=== PATIENT | male | born 1940 | race Caucasian/White ===

== ENCOUNTER 2017-07-15 16:21 | Outpatient (CLI) | payer MEDICARE, BC ==
--- NOTE | 2017-07-16 09:52 | MRI ---
CERVICAL SPINE MRI NONCONTRAST: Date: 07/15/17 Reference made to 10/29/11. INDICATION: Cervical radiculopathy. FINDINGS: Multilevel cervical spondylosis is present. There is near complete obliteration of the C6-7 disc spac e. This results in a prominent osteophyte ridge effacing the ventral aspect of the vertebral canal co ntents. Degenerative hypertrophy at the atlantoaxial articulation is present, moderate in degree. The re is parenchymal volume loss of the imaged brain parenchyma at the posterior cranial fossa. No acute marrow edema evident. No significant subluxation. There is effacement of the ventral thecal sac at C1-2 level due to the above described degenerative h ypertrophy. C2-3: There is no high grade central canal or neural foraminal stenosis. A disc osteophyte complex does mil dly efface the ventral thecal sac. C3-4: Mild central canal stenosis with mild ventral cord flattening due to broad based osteophyte. There is moderate bilateral neural foraminal stenosis. C4-5: Disc osteophyte complex with moderate central canal stenosis and cord flattening. There is moderate t o severe bilateral neural foraminal stenosis due to degenerative hypertrophy of the uncinate process bilaterally, facet joints bilaterally, and prominent osteophyte ridge. C5-6: Right asymmetric disc osteophyte complex results in mild central canal stenosis and mild to moderate narrowing of the right subarticular zone with ventral cord flattening more notable to the right. Ther e is mild bilateral neural foraminal stenosis. The previously noted focal protrusion which was center ed at the right subarticular zone is slightly less confluent. C6-7: Broad based osteophyte ridge results in moderate central canal stenosis and moderate cord compromise with moderate to severe left and moderate right neural foraminal stenosis. C7-T1: There is mild narrowing of the central canal with mild ventral cord effacement due to broad based dis c osteophyte. Mild to moderate right and mild left neural foraminal narrowing. Evaluation of the cervical spine cord reveals no obvious focal intramedullary signal abnormality. IMPRESSION: Multilevel degenerative change remains throughout the cervical spine, as delineated abov e. POS: [facility]
== END 2017-07-15 16:22 | disposition home or self-care (01) ==
LOC: MRI 16:21
PROVIDERS: ATTEND Neurological Surgery
DX: M47.22 Other spondylosis with radiculopathy, cervical region (principal)
CPT/HCPCS: 72141

== ENCOUNTER 2017-08-24 07:43 | Outpatient (CLI) | payer MEDICARE, BC | END 2017-08-24 07:44 | disposition home or self-care (01) | LOC: BICMRI 07:43 | PROVIDERS: ATTEND Specialist | DX: M51.16 Intervertebral disc disorders with radiculopathy, lumbar region (principal); M51.17 Intervertebral disc disorders with radiculopathy, lumbosacral region; M47.26 Other spondylosis with radiculopathy, lumbar region; M47.27 Other spondylosis with radiculopathy, lumbosacral region; M48.061 Spinal stenosis, lumbar region without neurogenic claudication; M99.83 Other biomechanical lesions of lumbar region | CPT/HCPCS: 72148 ==

== ENCOUNTER 2021-05-09 11:11 | Inpatient (IN) | payer MEDICARE, BC ==
[~2021-05-09 11:11] MED LIST: Iopamidol-370 76% 500 ML 1 ML ONE; Magnevist 469MG/ML 20 ML VIAL ONE
[2021-05-09 12:01] LABS: Prothrombin Time 13.6 sec (12.0-14.7)
[2021-05-09 12:02] LABS: PTT 23.1 sec (22.9-36.1)
[2021-05-09 12:04] LABS: ALT (SGPT) 8 U/L (8-55); AST (SGOT) 19 U/L (5-34); Albumin 4.2 g/dL (3.4-4.8); Alkaline Phosphatase 78 U/L (40-110); Anion Gap 14 mmol/L (10-20); BUN (Urea Nitrogen) 24 mg/dL (8.4-25.7); Bilirubin, Total 0.8 mg/dL (0.2-1.2); CK (CPK) 169 U/L (30-200); Calc. Creatinine Clearance 0 mL/min (70-130); Calcium 9.7 mg/dL (7.8-10.44); Carbon Dioxide 24 mmol/L (23-31); Chloride 107 mmol/L (98-107); Globulin 3.5 g/dL (2.4-3.5); Glucose 95 mg/dL (83-110); Potassium 3.9 mmol/L (3.5-5.1); Protein, Total 7.7 g/dL (5.8-8.1); Sodium 141 mmol/L (136-145)
[2021-05-09] MEDS ORDERED: Dexamethasone 10 MG/ML VIAL ONE (12:36)
[2021-05-09 12:40] LABS: #Eosinphils 0.1 thou/uL (0.0-0.7); #Lymphocytes 1.5 thou/uL (1.20-3.40); #Monocytes 0.7 thou/uL (0.11-0.59); %Basophils 0.3 % (0.0-1.0); %Eosinophils 0.7 % (0.0-10.0); %Lymphocytes 17.5 % (21.0-51.0); %Monocytes 8.8 % (0.0-10.0); %Neutrophils 72.7 % (42.0-75.0); Hemoglobin 14.6 g/dL (14.0-18.0); Mean Corpuscular HGB CONC 33.1 g/dL (32.0-36.0); Mean Corpuscular Volume 93.7 fL (78.0-98.0); Mean Platelet Volume 8.9 fL (7.4-10.4); Platelet Count 112 thou/uL (130-400); Platelet Morphology Comment Appears Decreased; RBC Distribution Width 11.6 % (11.5-14.5); RBC Morphology Normal; White Blood Cell (WBC) Count 8.3 thou/uL (4.8-10.8)
[2021-05-09] MEDS ORDERED: FOLIC ACID IV SCH (15:00)
[2021-05-09] MEDS ORDERED: MULTIVITAMINS IV SCH (15:00)
[2021-05-09] MEDS ORDERED: [UNRECOGNIZED DRUG - OTHER] IV SCH (15:00)
[2021-05-09] MEDS ORDERED: Thiamine HCl 200 MG/2 ML VIAL SLOW IVP SCH (15:00)
[2021-05-09] MEDS ORDERED: Magnesium 2 GM/50 ML 2 GM in Premix Bag 1 BAG IVPB SCH (15:00)
[2021-05-09] MEDS ORDERED: TRACE ELEMENT IV SCH (15:00)
[2021-05-09] MEDS ORDERED: Multivitamins, Adult 10 ML, Folic Acid 1 MG in Sodium Chloride 0.9% 1,000 ML IV SCH (15:00)
[2021-05-09 15:33] LABS: SARS-CoV-2 NAA Rapid Test Not Detected (NotDetected)
[2021-05-09] MEDS ORDERED: Magnesium 2 GM/50 ML BAG (IN WATER) ONE (15:35)
[2021-05-09] MEDS ORDERED: hydrALAZINE 20 MG/ML VIAL SLOW IVP PRN (18:14)
[2021-05-09] MEDS: Sodium Chloride 0.9% 1,000 ML IV SCH (18:15)
[2021-05-09] MEDS ORDERED: Dexamethasone 4 mg/ml Vial ONE (18:16)
[2021-05-09] MEDS: Dexamethasone 4 mg/ml Vial SLOW IVP SCH (18:22)
[2021-05-09 20:58] LABS: Bilirubin Negative (Negative); Blood, Urine Negative (Negative); Glucose, Urine (Dipstick) Negative (Negative); Ketone, Urine 15 mg/dL (Negative); Leukocyte Negative (Negative); Nitrite Negative (Negative); Protein, Urine (Dipstick) Negative (Neg-Trace); Urobilinogen 0.2 mg/dL (Less than 2); pH, Urine 6.5 (5.0-9.0)
[2021-05-09 20:59] LABS: Clarity Clear (Clear)
[2021-05-09 21:03] LABS: RBC/HPF 0-3 HPF (0-3); Squamous Epithelial 0-3 HPF (0-3); WBC/HPF 0-3 HPF (0-3)
[2021-05-09] MEDS ORDERED: Acetaminophen 650 MG Suppository ONE (22:58)
[2021-05-09] MEDS: Acetaminophen 650 MG Suppository PR PRN (23:10)
[2021-05-10] MEDS ORDERED: Sterile Water 10 ML VIAL FS PRN (01:15)
[2021-05-10] MEDS ORDERED: OLANZapine 10 MG VIAL IM SCH (01:15)
[2021-05-10] MEDS ORDERED: Dexamethasone 4 mg/ml Vial ONE (01:37)
[2021-05-10] MEDS: Dexamethasone 4 mg/ml Vial SLOW IVP SCH ×4 (01:51→18:18)
[2021-05-10 04:14] LABS: #Basophils 0.1 thou/uL (0.0-0.2); #Lymphocytes 0.8 thou/uL (1.20-3.40); #Monocytes 0.2 thou/uL (0.11-0.59); #Neutrophils 6.9 thou/uL (1.40-6.50); %Basophils 1.3 % (0.0-1.0); %Eosinophils 0.3 % (0.0-10.0); %Lymphocytes 9.9 % (21.0-51.0); %Monocytes 2.4 % (0.0-10.0); %Neutrophils 86.1 % (42.0-75.0); Hemoglobin 12.8 g/dL (14.0-18.0); Mean Corpuscular HGB CONC 33.1 g/dL (32.0-36.0); Mean Corpuscular Hemoglobin 30.9 pg (27.0-31.0); Mean Corpuscular Volume 93.6 fL (78.0-98.0); Mean Platelet Volume 9.8 fL (7.4-10.4); Platelet Count 153 thou/uL (130-400); RBC Distribution Width 11.6 % (11.5-14.5); Red Blood Cell (RBC) Count 4.14 mill/uL (4.70-6.10)
[2021-05-10 04:35] LABS: Anion Gap 13 mmol/L (10-20); BUN (Urea Nitrogen) 27 mg/dL (8.4-25.7); Calc. Creatinine Clearance 0 mL/min (70-130); Calcium 8.8 mg/dL (7.8-10.44); Carbon Dioxide 20 mmol/L (23-31); Chloride 111 mmol/L (98-107); Glucose 132 mg/dL (83-110); Potassium 4.2 mmol/L (3.5-5.1); Sodium 140 mmol/L (136-145)
[2021-05-10] MEDS: Sodium Chloride 0.9% 1,000 ML IV SCH (06:11)
[2021-05-10] MEDS: Pantoprazole 40 MG VIAL IVP SCH (10:20)
[2021-05-10] MEDS ORDERED: FLU VACC QS2021-22(65YR UP)/PF 240 MCG/0.7 ML SYRINGE IM ONE (14:00)
[2021-05-10] MEDS: Morphine 4 MG/ML VIAL SLOW IVP PRN (18:18)
[2021-05-10] MEDS: Dextrose 5 % And 0.9 % NaCl 1,000 ML IV SCH (18:19)
[2021-05-10] MEDS ORDERED: Lorazepam 2 MG/ML VIAL SLOW IVP SCH (21:45)
[2021-05-11] MEDS: Dexamethasone 4 mg/ml Vial SLOW IVP SCH ×5 (00:12→23:56)
[2021-05-11 04:12] LABS: #Lymphocytes 0.8 thou/uL (1.20-3.40); #Monocytes 0.8 thou/uL (0.11-0.59); #Neutrophils 15.5 thou/uL (1.40-6.50); %Eosinophils 0.3 % (0.0-10.0); %Lymphocytes 4.6 % (21.0-51.0); %Monocytes 4.5 % (0.0-10.0); %Neutrophils 90.6 % (42.0-75.0); Hemoglobin 12.3 g/dL (14.0-18.0); Mean Corpuscular HGB CONC 32.5 g/dL (32.0-36.0); Mean Corpuscular Hemoglobin 30.7 pg (27.0-31.0); Mean Corpuscular Volume 94.4 fL (78.0-98.0); Mean Platelet Volume 7.9 fL (7.4-10.4); Platelet Count 158 thou/uL (130-400); RBC Distribution Width 11.7 % (11.5-14.5); Red Blood Cell (RBC) Count 4.02 mill/uL (4.70-6.10); White Blood Cell (WBC) Count 17.1 thou/uL (4.8-10.8)
[2021-05-11 04:34] LABS: Anion Gap 13 mmol/L (10-20); BUN (Urea Nitrogen) 37 mg/dL (8.4-25.7); Calc. Creatinine Clearance 46 mL/min (70-130); Calcium 8.5 mg/dL (7.8-10.44); Carbon Dioxide 22 mmol/L (23-31); Chloride 111 mmol/L (98-107); Glucose 185 mg/dL (83-110); Potassium 4.5 mmol/L (3.5-5.1); Sodium 141 mmol/L (136-145)
[2021-05-11] MEDS: Dextrose 5 % And 0.9 % NaCl 1,000 ML IV SCH ×2 (06:41→18:49)
[2021-05-11] MEDS: Pantoprazole 40 MG VIAL IVP SCH (08:51)
[2021-05-11] MEDS: Morphine 4 MG/ML VIAL SLOW IVP PRN (11:48)
[2021-05-12 04:22] LABS: #Lymphocytes 0.6 thou/uL (1.20-3.40); #Monocytes 0.8 thou/uL (0.11-0.59); %Basophils 0.1 % (0.0-1.0); %Eosinophils 0.3 % (0.0-10.0); %Lymphocytes 3.8 % (21.0-51.0); %Neutrophils 90.8 % (42.0-75.0); Hemoglobin 12.6 g/dL (14.0-18.0); Mean Corpuscular HGB CONC 33.3 g/dL (32.0-36.0); Mean Corpuscular Hemoglobin 31.1 pg (27.0-31.0); Mean Corpuscular Volume 93.4 fL (78.0-98.0); Mean Platelet Volume 9.4 fL (7.4-10.4); Platelet Count 157 thou/uL (130-400); RBC Distribution Width 11.7 % (11.5-14.5); Red Blood Cell (RBC) Count 4.06 mill/uL (4.70-6.10); White Blood Cell (WBC) Count 15.4 thou/uL (4.8-10.8)
[2021-05-12 04:35] LABS: Anion Gap 14 mmol/L (10-20); BUN (Urea Nitrogen) 35 mg/dL (8.4-25.7); Calc. Creatinine Clearance 52 mL/min (70-130); Calcium 8.7 mg/dL (7.8-10.44); Carbon Dioxide 20 mmol/L (23-31); Chloride 114 mmol/L (98-107); Glucose 138 mg/dL (83-110); Potassium 4.5 mmol/L (3.5-5.1); Sodium 143 mmol/L (136-145)
[2021-05-12] MEDS: Dexamethasone 4 mg/ml Vial SLOW IVP SCH ×3 (06:18→17:53)
[2021-05-12] MEDS: Pantoprazole 40 MG VIAL IVP SCH (09:45)
[2021-05-12] MEDS: Dextrose 5 % And 0.9 % NaCl 1,000 ML IV SCH ×2 (09:57→21:46)
[2021-05-13] MEDS: Dexamethasone 4 mg/ml Vial SLOW IVP SCH ×5 (00:06→23:05)
[2021-05-13] MEDS: Pantoprazole 40 MG VIAL IVP SCH (09:10)
[2021-05-13] MEDS: Dextrose 5 % And 0.9 % NaCl 1,000 ML IV SCH (13:46)
[2021-05-13] MEDS: Acetaminophen 650 MG Suppository PR PRN (21:11)
[2021-05-13] MEDS ORDERED: Piperacillin/Tazobactam 3.375 GM in Sodium Chloride 0.9% 100 ML IVPB SCH (22:30)
[2021-05-13] MEDS ORDERED: Acetaminophen 325 MG Suppository PR SCH (23:00)
[2021-05-14] MEDS: Dextrose 5 % And 0.9 % NaCl 1,000 ML IV SCH ×2 (02:39→14:33)
[2021-05-14] MEDS: Piperacillin/Tazobactam 3.375 GM in Sodium Chloride 0.9% 100 ML IVPB SCH ×3 (02:40→18:29)
[2021-05-14 03:23] LABS: Bilirubin Negative (Negative); Blood, Urine 3+ (Negative); Clarity Extra Turbid (Clear); Glucose, Urine (Dipstick) Normal (Negative); Ketone, Urine Negative (Negative); Leukocyte 500 Leu/uL (Negative); Nitrite Negative (Negative); Protein, Urine (Dipstick) 200 mg/dL (Neg-Trace); RBC/HPF Greater than 50 HPF (0-3); Specific Gravity, Urine 1.022 (1.002-1.036); Squamous Epithelial 0-3 HPF (0-3); Urobilinogen Normal mg/dL (Less than 2); WBC/HPF Greater than 50 HPF (0-3)
[2021-05-14 03:36] LABS: Bacteria/HPF 3+ HPF (None Seen); Calcium Oxalate Crystals 3+ HPF (None Seen); Triple Phosphate Crystal 1+ HPF (None Seen); Urine Culture Reflex Yes Yes
[2021-05-14] MEDS: Dexamethasone 4 mg/ml Vial SLOW IVP SCH ×4 (05:05→23:54)
[2021-05-14] MEDS: Pantoprazole 40 MG VIAL IVP SCH (09:04)
[2021-05-14] MEDS ORDERED: Fentanyl 100 MCG/2 ML VIAL ONE (09:27)
[2021-05-14] MEDS ORDERED: Sodium Bicarbonate 2.5 MEQ/5 ML VIAL ONE (09:27)
[2021-05-14] MEDS ORDERED: Midazolam HCl 2 mg/2 ml Vial ONE (09:27)
[2021-05-14] MEDS: VANCOMYCIN 1.25 GM/250 ML BAG 1.25 GM in Premix Bag 1 BAG IVPB SCH (14:31)
[2021-05-14] MEDS: Acetaminophen 650 MG Suppository PR PRN (14:31)
[2021-05-14] MEDS ORDERED: VANCOMYCIN 1.25 GM/250 ML BAG 1.25 GM in Premix Bag 1 BAG IVPB SCH (21:00)
[2021-05-15] MEDS: Piperacillin/Tazobactam 3.375 GM in Sodium Chloride 0.9% 100 ML IVPB SCH ×3 (01:36→18:00)
[2021-05-15] MEDS: Morphine 4 MG/ML VIAL SLOW IVP PRN (01:51)
[2021-05-15] MEDS: Dextrose 5 % And 0.9 % NaCl 1,000 ML IV SCH ×2 (05:46→15:58)
[2021-05-15] MEDS: Dexamethasone 4 mg/ml Vial SLOW IVP SCH ×3 (05:47→18:01)
[2021-05-15] MEDS: Pantoprazole 40 MG VIAL IVP SCH (10:11)
[2021-05-15] MEDS: Acetaminophen 650 MG Suppository PR PRN ×2 (12:43→21:59)
[2021-05-15 14:50] LABS: Albumin 2.7 g/dL (3.4-4.8); Calcium 8.6 mg/dL (7.8-10.44); Chloride 117 mmol/L (98-107); Glucose 123 mg/dL (83-110); Potassium 4.8 mmol/L (3.5-5.1); Sodium 142 mmol/L (136-145)
[2021-05-15 14:51] LABS: Anion Gap 14 mmol/L (10-20); Bilirubin, Total 0.6 mg/dL (0.2-1.2); Carbon Dioxide 16 mmol/L (23-31); Globulin 3.7 g/dL (2.4-3.5); Protein, Total 6.4 g/dL (5.8-8.1)
[2021-05-15 14:54] LABS: Hemoglobin 13.1 g/dL (14.0-18.0); Lymphocytes 6 % (21-51); MDiff Complete? YES; Mean Corpuscular HGB CONC 33.4 g/dL (32.0-36.0); Mean Corpuscular Hemoglobin 31.4 pg (27.0-31.0); Mean Corpuscular Volume 94.3 fL (78.0-98.0); Monocytes 3 % (0-10); Neutrophil 91 % (42-75); Platelet Count 109 thou/uL (130-400); Platelet Morphology Comment Appears Decreased; Polychromasia SLIGHT = 2-3 cells (100X) (0-2/hpf); Red Blood Cell (RBC) Count 4.16 mill/uL (4.70-6.10)
[2021-05-15 15:16] LABS: Alkaline Phosphatase 54 U/L (40-110); Calc. Creatinine Clearance 60 mL/min (70-130)
[2021-05-15 15:17] LABS: BUN (Urea Nitrogen) 43 mg/dL (8.4-25.7)
[2021-05-15 15:19] LABS: ALT (SGPT) 11 U/L (8-55); AST (SGOT) 24 U/L (5-34)
[2021-05-15] MEDS: VANCOMYCIN 1.25 GM/250 ML BAG 1.25 GM in Premix Bag 1 BAG IVPB SCH (15:50)
[2021-05-16] MEDS: Dexamethasone 4 mg/ml Vial SLOW IVP SCH ×4 (00:11→17:52)
[2021-05-16] MEDS: Piperacillin/Tazobactam 3.375 GM in Sodium Chloride 0.9% 100 ML IVPB SCH ×3 (01:34→17:52)
[2021-05-16] MEDS: Dextrose 5 % And 0.9 % NaCl 1,000 ML IV SCH ×2 (01:35→18:30)
[2021-05-16 09:13] LABS: SARS-CoV-2 PCR by NAA Not Detected (NotDetected)
[2021-05-16] MEDS: Pantoprazole 40 MG VIAL IVP SCH (09:51)
[2021-05-16] MEDS: VANCOMYCIN 1.25 GM/250 ML BAG 1.25 GM in Premix Bag 1 BAG IVPB SCH (14:18)
[2021-05-16 14:30] LABS: Vancomycin, Trough 5.6 ug/mL
[2021-05-16] MEDS ORDERED: Vancomycin HCl 500 MG in Sodium Chloride 0.9% 100 ML IVPB SCH (15:15)
[2021-05-16] MEDS: Acetaminophen 650 MG Suppository PR PRN (17:52)
[2021-05-17] MEDS: Dexamethasone 4 mg/ml Vial SLOW IVP SCH ×5 (00:14→23:44)
[2021-05-17] MEDS: Piperacillin/Tazobactam 3.375 GM in Sodium Chloride 0.9% 100 ML IVPB SCH ×3 (02:28→17:44)
[2021-05-17] MEDS: Morphine 4 MG/ML VIAL SLOW IVP PRN (05:17)
[2021-05-17] MEDS: Dextrose 5 % And 0.9 % NaCl 1,000 ML IV SCH ×2 (11:10→21:03)
[2021-05-17] MEDS: Pantoprazole 40 MG VIAL IVP SCH (11:11)
[2021-05-17] MEDS: Acetaminophen 650 MG Suppository PR PRN (11:12)
[2021-05-17] MEDS: VANCOMYCIN 1.75 GM/350 ML BAG 1.75 GM in Premix Bag 1 BAG IVPB SCH (16:29)
[2021-05-18] MEDS: Piperacillin/Tazobactam 3.375 GM in Sodium Chloride 0.9% 100 ML IVPB SCH ×3 (02:58→17:19)
[2021-05-18] MEDS: Dexamethasone 4 mg/ml Vial SLOW IVP SCH ×4 (05:56→23:53)
[2021-05-18] MEDS: Pantoprazole 40 MG VIAL IVP SCH (10:22)
[2021-05-18] MEDS: Dextrose 5 % And 0.9 % NaCl 1,000 ML IV SCH (10:22)
[2021-05-18] MEDS ORDERED: Ondansetron ODT 4 MG TAB SL PRN (11:02)
[2021-05-18] MEDS ORDERED: Artificial Tear Sol 15 ML BOT EA EYE PRN (11:02)
[2021-05-18] MEDS ORDERED: Senokot S 8.6-50 MG TAB PER TUBE PRN (11:02)
[2021-05-18] MEDS ORDERED: Hydrocerin (Eucerin) Cream 120 gm Jar TOP PRN (11:02)
[2021-05-18] MEDS ORDERED: Ondansetron PF 4 MG/2 ML Vial IVP PRN (11:02)
[2021-05-18] MEDS ORDERED: GUAIFENESIN SF SOLN 200 MG/10 ML UDCUP PER TUBE PRN (11:02)
[2021-05-18] MEDS ORDERED: Calcium Carbonate 500 MG ChewTAB PER TUBE PRN (11:02)
[2021-05-18] MEDS ORDERED: Loratadine 10 MG TAB PER TUBE PRN (11:02)
[2021-05-18] MEDS ORDERED: Loperamide HCl 2 MG CAP PER TUBE PRN (11:02)
[2021-05-18] MEDS: Phenazopyridine HCl 100 MG TAB PER TUBE SCH ×2 (13:01→17:22)
[2021-05-18] MEDS: VANCOMYCIN 1.75 GM/350 ML BAG 1.75 GM in Premix Bag 1 BAG IVPB SCH (15:52)
[2021-05-18] MEDS: HYDROcodone/Acetaminophen 5/325 mg Tablet PER TUBE PRN (17:19)
[2021-05-18] MEDS ORDERED: Acetaminophen 650 MG/20.3 ML UDCUP PER TUBE PRN (17:30)
[2021-05-19] MEDS: Piperacillin/Tazobactam 3.375 GM in Sodium Chloride 0.9% 100 ML IVPB SCH ×3 (01:47→18:05)
[2021-05-19] MEDS: Dextrose 5 % And 0.9 % NaCl 1,000 ML IV SCH ×2 (01:47→20:28)
[2021-05-19] MEDS: Dexamethasone 4 mg/ml Vial SLOW IVP SCH ×4 (05:40→22:52)
[2021-05-19 09:17] LABS: Hemoglobin 13.2 g/dL (14.0-18.0); Mean Corpuscular HGB CONC 32.1 g/dL (32.0-36.0); Mean Corpuscular Hemoglobin 31.3 pg (27.0-31.0); Mean Corpuscular Volume 97.4 fL (78.0-98.0); Mean Platelet Volume 9.9 fL (7.4-10.4); Platelet Count 122 thou/uL (130-400); RBC Distribution Width 12.4 % (11.5-14.5); Red Blood Cell (RBC) Count 4.23 mill/uL (4.70-6.10); White Blood Cell (WBC) Count 20.7 thou/uL (4.8-10.8)
[2021-05-19] MEDS: Phenazopyridine HCl 100 MG TAB PER TUBE SCH ×3 (10:16→18:05)
[2021-05-19] MEDS: Pantoprazole 40 MG VIAL IVP SCH (10:17)
[2021-05-19 10:23] LABS: Band 3 % (5-11); Eosinophils 1 % (0-10); Lymphocytes 6 % (21-51); MDiff Complete? YES; Monocytes 3 % (0-10); Neutrophil 87 % (42-75); Platelet Morphology Comment Appears Decreased; Polychromasia SLIGHT = 2-3 cells (100X) (0-2/hpf)
[2021-05-19 10:33] LABS: ALT (SGPT) 10 U/L (8-55); AST (SGOT) 11 U/L (5-34); Albumin 2.5 g/dL (3.4-4.8); Alkaline Phosphatase 65 U/L (40-110); Anion Gap 9 mmol/L (10-20); BUN (Urea Nitrogen) 40 mg/dL (8.4-25.7); Bilirubin, Total 0.5 mg/dL (0.2-1.2); Calc. Creatinine Clearance 75 mL/min (70-130); Carbon Dioxide 24 mmol/L (23-31); Chloride 116 mmol/L (98-107); Globulin 2.5 g/dL (2.4-3.5); Glucose 204 mg/dL (83-110); Phosphorus 2.5 mg/dL (2.3-4.7); Potassium 3.9 mmol/L (3.5-5.1); Sodium 145 mmol/L (136-145)
[2021-05-19] MEDS: HYDROcodone/Acetaminophen 5/325 mg Tablet PER TUBE PRN (12:40)
[2021-05-19 14:52] LABS: Vancomycin, Trough 11.7 ug/mL
[2021-05-19] MEDS: VANCOMYCIN 2 GRAM/400 ML BAG 2 GM in Premix Bag 1 BAG IVPB SCH (16:58)
[2021-05-19] MEDS: VANCOMYCIN 1.75 GM/350 ML BAG 1.75 GM in Premix Bag 1 BAG IVPB SCH (17:04)
[2021-05-19] MEDS: Morphine 4 MG/ML VIAL SLOW IVP PRN (22:51)
[2021-05-20] MEDS: Piperacillin/Tazobactam 3.375 GM in Sodium Chloride 0.9% 100 ML IVPB SCH ×3 (02:51→17:45)
[2021-05-20] MEDS: Dexamethasone 4 mg/ml Vial SLOW IVP SCH ×4 (05:07→23:19)
[2021-05-20] MEDS: Phenazopyridine HCl 100 MG TAB PER TUBE SCH ×3 (08:47→17:46)
[2021-05-20] MEDS: Dextrose 5 % And 0.9 % NaCl 1,000 ML IV SCH ×2 (08:47→23:19)
[2021-05-20] MEDS: Pantoprazole 40 MG VIAL IVP SCH (08:47)
[2021-05-20] MEDS: VANCOMYCIN 2 GRAM/400 ML BAG 2 GM in Premix Bag 1 BAG IVPB SCH (17:46)
[2021-05-21] MEDS: Piperacillin/Tazobactam 3.375 GM in Sodium Chloride 0.9% 100 ML IVPB SCH ×3 (03:16→18:46)
[2021-05-21] MEDS: Dexamethasone 4 mg/ml Vial SLOW IVP SCH ×3 (06:11→18:46)
[2021-05-21 08:50] LABS: Hemoglobin 15.4 g/dL (14.0-18.0); Mean Corpuscular HGB CONC 32.9 g/dL (32.0-36.0); Mean Corpuscular Hemoglobin 30.7 pg (27.0-31.0); Mean Corpuscular Volume 93.3 fL (78.0-98.0); Mean Platelet Volume 8.3 fL (7.4-10.4); Platelet Count 135 thou/uL (130-400); RBC Distribution Width 12.1 % (11.5-14.5); Red Blood Cell (RBC) Count 5.02 mill/uL (4.70-6.10); White Blood Cell (WBC) Count 32.8 thou/uL (4.8-10.8)
[2021-05-21 09:05] LABS: ALT (SGPT) 18 U/L (8-55); AST (SGOT) 18 U/L (5-34); Alkaline Phosphatase 75 U/L (40-110); Anion Gap 12 mmol/L (10-20); BUN (Urea Nitrogen) 36 mg/dL (8.4-25.7); Bilirubin, Total 1.1 mg/dL (0.2-1.2); Calc. Creatinine Clearance 69 mL/min (70-130); Calcium 8.5 mg/dL (7.8-10.44); Carbon Dioxide 24 mmol/L (23-31); Chloride 107 mmol/L (98-107); Glucose 171 mg/dL (83-110); Potassium 3.9 mmol/L (3.5-5.1); Sodium 139 mmol/L (136-145)
[2021-05-21 09:20] LABS: Band 11 % (5-11); Hypersemented Neutrophil SLIGHT; Lymphocytes 4 % (21-51); MDiff Complete? YES; Metamyelocyte 2 % (0-0); Monocytes 3 % (0-10); Neutrophil 80 % (42-75); Platelet Morphology Comment Appears Adequate; Polychromasia SLIGHT = 2-3 cells (100X) (0-2/hpf); Vacuoles SLIGHT
[2021-05-21] MEDS: Pantoprazole 40 MG VIAL IVP SCH (09:52)
[2021-05-21] MEDS: Phenazopyridine HCl 100 MG TAB PER TUBE SCH ×3 (09:53→18:46)
[2021-05-21 11:29] VITALS: BMI 22.3
[2021-05-21] MEDS: Scopolamine 1.5 mg/72 hour Patch TD SCH (15:27)
[2021-05-21] MEDS: VANCOMYCIN 2 GRAM/400 ML BAG 2 GM in Premix Bag 1 BAG IVPB SCH (17:11)
[2021-05-22] MEDS: Dexamethasone 4 mg/ml Vial SLOW IVP SCH ×4 (00:25→17:33)
[2021-05-22] MEDS: Piperacillin/Tazobactam 3.375 GM in Sodium Chloride 0.9% 100 ML IVPB SCH (01:35)
[2021-05-22] MEDS: Pantoprazole 40 MG VIAL IVP SCH (08:36)
[2021-05-22] MEDS: Morphine 4 MG/ML VIAL SLOW IVP PRN ×2 (15:39→20:36)
[2021-05-22] MEDS: Lorazepam 2 MG/ML VIAL SLOW IVP PRN (20:35)
[2021-05-23] MEDS: Dexamethasone 4 mg/ml Vial SLOW IVP SCH ×4 (01:05→18:10)
[2021-05-23] MEDS ORDERED: Morphine 4 MG/ML VIAL SLOW IVP SCH (03:00)
[2021-05-23] MEDS ORDERED: Lorazepam 2 MG/ML VIAL SLOW IVP SCH (03:00)
[2021-05-23] MEDS: Lorazepam 2 MG/ML VIAL SLOW IVP PRN ×3 (03:10→20:38)
[2021-05-23] MEDS: Morphine 4 MG/ML VIAL SLOW IVP PRN ×3 (03:11→20:37)
[2021-05-23] MEDS: Acetaminophen 650 MG Suppository PR PRN (14:05)
[2021-05-24] MEDS: Morphine 4 MG/ML VIAL SLOW IVP PRN (00:46)
[2021-05-24] MEDS: Lorazepam 2 MG/ML VIAL SLOW IVP PRN (00:47)
[2021-05-24] MEDS: Dexamethasone 4 mg/ml Vial SLOW IVP SCH ×3 (00:47→11:17)
[2021-05-24] MEDS: Acetaminophen 650 MG Suppository PR PRN (05:16)
[2021-05-24 07:51] VITALS: BP 76/40; TEMP 99.8
[2021-05-24] MEDS: Scopolamine 1.5 mg/72 hour Patch TD SCH (11:05)
== END 2021-05-24 12:11 | disposition hospice, home (50) | DRG 54 ==
LOC: ERS 11:11 → ERHOLD 14:03 → IMCU/EMU 05-10 02:15 → MSONC 05-22 17:44
PROVIDERS: ADMIT Family Medicine; ATTEND Family Medicine
PROC: 3E0G76Z Introduction of Nutritional Substance into Upper GI, Via Natural or Artificial Opening (ICD-10-PCS; principal; 2021-05-09)
DX: C79.31 Secondary malignant neoplasm of brain (principal); G93.6 Cerebral edema; J69.0 Pneumonitis due to inhalation of food and vomit; G93.41 Metabolic encephalopathy; C78.02 Secondary malignant neoplasm of left lung; I61.3 Nontraumatic intracerebral hemorrhage in brain stem; C79.72 Secondary malignant neoplasm of left adrenal gland; G81.94 Hemiplegia, unspecified affecting left nondominant side; N39.0 Urinary tract infection, site not specified; Z20.822 Contact with and (suspected) exposure to COVID-19; Z66 Do not resuscitate; Z51.5 Encounter for palliative care; I10 Essential (primary) hypertension; R29.723 NIHSS score 23; R13.12 Dysphagia, oropharyngeal phase; D69.6 Thrombocytopenia, unspecified; D72.829 Elevated white blood cell count, unspecified; T38.0X5A Adverse effect of glucocorticoids and synthetic analogues, initial encounter; Z85.46 Personal history of malignant neoplasm of prostate; Z95.1 Presence of aortocoronary bypass graft; Z95.2 Presence of prosthetic heart valve; Z79.82 Long term (current) use of aspirin; Z79.899 Other long term (current) drug therapy; Z88.5 Allergy status to narcotic agent
CPT/HCPCS: 36415; 36416; 51701; 70450; 70553; 71045; 71260; 72125; 74018; 74177; 76380; 80048; 80053; 80202; 81001; 81003; 82550; 83735; 84100; 84484; 85025; 85610; 85730; 86850; 86900; 86901; 87040; 87086; 87149; 93005; 94760; 96374; A9579; C9113; J1100; J2060; J2250; J2270; J2358; J2543; J3010; J3370; J3411; J3475; J3490; J7042; J7050; Q9967; U0002; U0003; U0005